=== PATIENT | female | born 1975 | race Caucasian/White ===

== ENCOUNTER 2018-11-20 10:30 | Outpatient (RCR) | payer BC | END 2018-11-20 11:00 | disposition home or self-care (01) | LOC: PT 10:30 | DX: M51.26 Other intervertebral disc displacement, lumbar region (principal); Z98.890 Other specified postprocedural states ==

== ENCOUNTER 2020-12-08 11:22 | Emergency (ER) | payer OTHER ==
[~2020-12-08] VITALS: Ht 165.1 cm; Wt 83.1 kg
[2020-12-08] MEDS ORDERED: KLONOPIN 0.5MG0.5 MG PO (11:33)
[2020-12-08] MEDS ORDERED: MULTI-VITAMIN1 EACH PO (11:34)
[2020-12-08 12:23] LABS: BASO # 0.02 K/mm3 (0.02-0.10); EOS # 0.03 K/mm3 (0.04-0.40); EOS % 0.5 % (1.0-5.0); HEMATOCRIT 39.1 % (37.0-47.0); HEMOGLOBIN 13.2 g/dL (12.5-16.0); LYMPH# 1.41 K/mm3 (1.50-4.00); MEAN CELL VOLUME 92 fl (78-100); MEAN CORPUSCULAR HEMOGLOBIN 31 pg (27-31); MEAN CORPUSCULAR HGB CONC 34 g/dL (33-37); MEAN PLATELET VOLUME 9.6 fl (7.4-10.4); MONO # 0.37 K/mm3 (0.20-0.80); NEU # 4.55 K/mm3 (1.40-6.50); PLATELET COUNT 245 K/mm3 (130-400); RED BLOOD COUNT 4.25 M/mm3 (4.10-5.30); RED CELL DISTRIBUTION WIDTH 12.7 % (11.5-14.5); WHITE BLOOD COUNT 6.4 K/mm3 (4.8-10.8)
[2020-12-08 12:35] LABS: POTASSIUM 4.1 mmol/L (3.5-5.1); SODIUM 141 mmol/L (136-145)
[2020-12-08 12:37] LABS: CALCIUM 9.2 mg/dL (8.3-10.5)
[2020-12-08 12:38] LABS: GLUCOSE 85 mg/dL (65-105); TOTAL PROTEIN 6.7 g/dL (6.4-8.3)
[2020-12-08 12:39] LABS: CARBON DIOXIDE 25 mmol/L (22-29)
[2020-12-08 12:40] LABS: TOTAL BILIRUBIN 0.8 mg/dL (0.2-1.2)
[2020-12-08 12:43] LABS: AST-SGOT 13 U/L (5-34)
[2020-12-08 12:45] LABS: ALT/SGPT 13 U/L (0-55)
[2020-12-08 12:46] LABS: LIPASE 35 U/L (8-78)
[2020-12-08 13:04] LABS: ACETAMINOPHEN < 1 ug/mL; ALCOHOL IN-HOUSE < 10 mg/dL (<10); TROPONIN-I < 0.03 ng/mL (<0.030)
[2020-12-08 14:21] LABS: URINE APPEARANCE CLEAR; URINE BILIRUBIN NEGATIVE (NEGATIVE); URINE BLOOD TRACE (NEGATIVE); URINE COLOR YELLOW; URINE GLUCOSE NEGATIVE (NEGATIVE); URINE KETONE 1+ (NEGATIVE); URINE LEUKOCYTE ESTERASE NEGATIVE (NEGATIVE); URINE NITRATE NEGATIVE (NEGATIVE); URINE PROTEIN(semi-quant) NEGATIVE (NEGATIVE); URINE UROBILINOGEN NORMAL (NORMAL); URINE WBC 0-1 /hpf (0-3)
[2020-12-08] MEDS ORDERED: VALIUM 2MG T2 MG/TAB PO (17:23)
[2020-12-08 17:32] VITALS: BP 132/72
== END 2020-12-08 17:32 | disposition home or self-care (01) ==
LOC: ED 11:22
PROVIDERS: Nurse Practitioner
DX: F41.9 Anxiety disorder, unspecified (principal); F32.A Depression, unspecified; Z79.899 Other long term (current) drug therapy
CPT/HCPCS: J1885

== ENCOUNTER → 2023-06-12 | Day surgery (SDC) | payer BC ==
[~2023-06-12] MED LIST: KLONOPIN 0.5MG0.5 MG PO; MULTI-VITAMIN1 EACH PO; VALIUM 2MG T2 MG/TAB PO; fentaNYL 100 MCG/2 ML VIAL ONE
== END | disposition home or self-care (01) ==
LOC: MSO 08:32
DX: Z12.11 Encounter for screening for malignant neoplasm of colon (principal); Z80.0 Family history of malignant neoplasm of digestive organs
CPT/HCPCS: 00812; J2704; J3010; J7120